=== PATIENT | female | born 1950 | race Caucasian/White ===

== ENCOUNTER 2016-06-17 06:05 | Emergency (ER) | payer OTHER, MEDICAID ==
[~2016-06-17] VITALS: Ht 167.6 cm; Wt 72.6 kg
[2016-06-17 07:51] LABS: Albumin 3.3 g/dL (3.4-5.0); BUN/Creatinine Ratio 13.6; Bilirubin, Total 0.7 mg/dL (0.2-1.0); Calcium 8.9 mg/dL (8.5-10.1); Potassium 3.3 mmol/L (3.5-5.1); Total Protein 7.1 g/dL (6.4-8.2)
[2016-06-17 07:59] LABS: Basophils # (auto) 0 uL; Basophils % (auto) 0.3 % (0.0-2.0); Eosinophils # (auto) 0.1 uL; Eosinophils % (auto) 1.2 % (0.0-7.0); Hematocrit 41.9 % (36.0-46.0); Hemoglobin 13.4 g/dL (12.2-16.2); Lymphocytes # (auto) 1.7 uL; Lymphocytes % (auto) 16.8 % (10.0-50.0); Mean Corpuscular Hemoglobin 29.5 pg (28.0-32.0); Mean Corpuscular Volume 92.3 fL (80.0-100.0); Mean Platelet Volume 10.2 fL (7.4-10.4); Monocytes # (auto) 1.1 uL; Monocytes % (auto) 10.8 % (0.0-12.0); Neutrophils # (auto) 7.3 uL; Neutrophils % (auto) 70.9 % (37.0-80.0); Platelet Count (auto) 238 10^3/uL (140-450); White Blood Cell 10.3 10^3/uL (4.4-10.8)
[2016-06-17 09:41] LABS: Urine Bilirubin Negative (Negative); Urine Blood Negative /uL (Negative); Urine Color Yellow (Yellow); Urine Glucose Normal (Normal); Urine Ketone Negative (Negative); Urine Nitrite Negative (Negative); Urine RBC <1 /hpf (0 - 4); Urine pH 6.5 (5.0-8.0)
[2016-06-17 12:30] VITALS: BP 139/82
== END 2016-06-17 13:26 | disposition home or self-care (01) ==
LOC: EDBD 06:05 → ER 06:05
DX: T42.6X1A Poisoning by other antiepileptic and sedative-hypnotic drugs, accidental (unintentional), initial encounter (principal); S00.03XA Contusion of scalp, initial encounter; I10 Essential (primary) hypertension; E87.6 Hypokalemia; I67.9 Cerebrovascular disease, unspecified; G81.91 Hemiplegia, unspecified affecting right dominant side; E05.90 Thyrotoxicosis, unspecified without thyrotoxic crisis or storm; Z85.3 Personal history of malignant neoplasm of breast; W18.39XA Other fall on same level, initial encounter; Y93.89 Activity, other specified; Y92.89 Other specified places as the place of occurrence of the external cause; Y99.8 Other external cause status
CPT/HCPCS: 36415; 70450; 80053; 81001; 83735; 84484; 85025; 85049; 93005

== ENCOUNTER 2016-12-05 07:39 | Inpatient (IN) | payer OTHER, MEDICAID ==
[~2016-12-05] VITALS: Ht 172.7 cm; Wt 75.0 kg
[2016-12-05] MEDS ORDERED: SODIUM CHLORIDE 0.9% 500 ML IV ONE (08:30)
[2016-12-05 08:33] LABS: Basophils # (auto) 0 uL; Basophils % (auto) 0.4 % (0.0-2.0); CONDITION Y; Eosinophils # (auto) 0.1 uL; Eosinophils % (auto) 1.3 % (0.0-7.0); Hematocrit 39.7 % (36.0-46.0); Hemoglobin 12.9 g/dL (12.2-16.2); Lymphocytes # (auto) 1.5 uL; Lymphocytes % (auto) 15.5 % (10.0-50.0); Mean Corpuscular Hemoglobin 30.1 pg (28.0-32.0); Mean Corpuscular Hgb Conc. 32.6 g/dL (32.0-36.0); Mean Corpuscular Volume 92.3 fL (80.0-100.0); Mean Platelet Volume 9.9 fL (7.4-10.4); Monocytes % (auto) 10.3 % (0.0-12.0); Neutrophils # (auto) 6.9 uL; Neutrophils % (auto) 72.5 % (37.0-80.0); Platelet Count (auto) 236 10^3/uL (140-450); Red Cell Distribution Width 15.1 % (11.6-16.0); White Blood Cell 9.5 10^3/uL (4.4-10.8)
[2016-12-05 09:03] LABS: BUN/Creatinine Ratio 19.2; Bilirubin, Total 0.5 mg/dL (0.2-1.0); Calcium 8.2 mg/dL (8.5-10.1); Potassium 3.8 mmol/L (3.5-5.1); Total Protein 6.5 g/dL (6.4-8.2)
[2016-12-05 09:43] LABS: Urine RBC None Seen /hpf (0 - 4)
[2016-12-05 09:48] LABS: Urine Bilirubin Negative (Negative); Urine Blood Negative /uL (Negative); Urine Color Yellow (Yellow); Urine Glucose Normal (Normal); Urine Ketone Negative (Negative); Urine Nitrite Negative (Negative); Urine Squamous Epithelial Cell FEW /hpf (<5)
[2016-12-05] MEDS ORDERED: ONDANSETRON HCL 4 MG/2 ML VIAL IV ONE (10:15)
[2016-12-05] MEDS ORDERED: HYDROmorphone HCL 2 MG/ML VL IV ONE (10:15)
[2016-12-05] MEDS ORDERED: cloNIDine HCL 0.1 MG TAB PO PRN (12:00)
[2016-12-05] MEDS ORDERED: MORPHINE SULF INJ 2 MG/ML SYRINGE 1ML IV PRN (12:15)
[2016-12-05] MEDS ORDERED: ACETAMINOPHEN 325 MG TAB PO PRN (12:15)
[2016-12-05] MEDS ORDERED: DOCUSATE SOD 100 MG CAP PO PRN (12:15)
[2016-12-05] MEDS ORDERED: NITROGLYCERIN 0.4 MG SL TAB SL PRN (12:15)
[2016-12-05] MEDS ORDERED: TEMAZEPAM 15 MG CAP PO PRN (12:15)
[2016-12-05] MEDS ORDERED: amLODIPine BESYLATE 5 MG TAB PO ONE (12:30)
[2016-12-05] MEDS: ASCORBIC ACID 500 MG TAB PO SCH ×2 (12:47→22:08)
[2016-12-05] MEDS: ZINC SULFATE 220 MG CAP PO SCH (12:48)
[2016-12-05] MEDS: MULTIPLE VITAMIN TAB PO SCH (12:48)
[2016-12-05] MEDS: FAMOTIDINE 20 MG TAB PO SCH ×2 (12:49→22:07)
[2016-12-05] MEDS: SODIUM CHLOR 0.9% PF (SALINE LOCK) 10ML VIAL IV SCH ×2 (12:50→22:03)
[2016-12-05] MEDS ORDERED: CITALOPRAM HYDROBR 20 MG TAB PO ONE (14:15)
[2016-12-05] MEDS: ONDANSETRON HCL 4 MG/2 ML VIAL IV PRN (14:30)
[2016-12-05] MEDS: MORPHINE SULF INJ 2 MG/ML SYRINGE 1ML IV PRN ×2 (14:30→19:44)
[2016-12-05 14:41] VITALS: BP 99/65
[2016-12-05] MEDS ORDERED: AMLO5TAB2 PO (15:01)
[2016-12-05] MEDS ORDERED: LISI-646 PO (15:01)
[2016-12-05] MEDS ORDERED: ESCI20TA51 PO (15:01)
[2016-12-05] MEDS ORDERED: SIMV-13 PO (15:01)
[2016-12-05] MEDS ORDERED: LOSA50TA6 PO (15:01)
[2016-12-05 15:33] LABS: Prothrombin Time 10.9 sec (9.37-12.3)
[2016-12-05] MEDS: BOOST PLUS 8 ounce PO SCH (16:34)
[2016-12-05 21:30] VITALS: BP 121/67
[2016-12-05] MEDS: ATORVASTATIN 20 MG TAB PO SCH (22:07)
[2016-12-05] MEDS: LISINOPRIL 20 MG TAB PO SCH (22:08)
[2016-12-06] MEDS: MORPHINE SULF INJ 2 MG/ML SYRINGE 1ML IV PRN ×2 (00:03→18:29)
[2016-12-06 05:00] VITALS: BP 91/63
[2016-12-06] MEDS: SODIUM CHLOR 0.9% PF (SALINE LOCK) 10ML VIAL IV SCH ×3 (06:06→21:51)
[2016-12-06 06:26] LABS: Basophils # (auto) 0 uL; Basophils % (auto) 0.3 % (0.0-2.0); CONDITION Y; Eosinophils # (auto) 0.2 uL; Eosinophils % (auto) 2.4 % (0.0-7.0); Hematocrit 36.5 % (36.0-46.0); Hemoglobin 12.1 g/dL (12.2-16.2); Lymphocytes # (auto) 1.4 uL; Lymphocytes % (auto) 15.8 % (10.0-50.0); Mean Corpuscular Hemoglobin 30.5 pg (28.0-32.0); Mean Corpuscular Hgb Conc. 33.1 g/dL (32.0-36.0); Mean Corpuscular Volume 92.1 fL (80.0-100.0); Mean Platelet Volume 9.7 fL (7.4-10.4); Monocytes % (auto) 11.7 % (0.0-12.0); Neutrophils # (auto) 6.2 uL; Neutrophils % (auto) 69.8 % (37.0-80.0); Platelet Count (auto) 208 10^3/uL (140-450); Red Cell Distribution Width 15.3 % (11.6-16.0); White Blood Cell 8.9 10^3/uL (4.4-10.8)
[2016-12-06 06:52] LABS: Albumin 2.5 g/dL (3.4-5.0); BUN/Creatinine Ratio 16.9; Bilirubin, Total 0.9 mg/dL (0.2-1.0); Calcium 8.1 mg/dL (8.5-10.1)
[2016-12-06] MEDS: BOOST PLUS 8 ounce PO SCH ×3 (08:00→18:29)
[2016-12-06 09:00] VITALS: BP 99/55
[2016-12-06] MEDS: ZINC SULFATE 220 MG CAP PO SCH (10:00)
[2016-12-06] MEDS ORDERED: PATIENTS OWN MEDICATION PO SCH ×2 (10:00)
[2016-12-06] MEDS: MULTIPLE VITAMIN TAB PO SCH (10:00)
[2016-12-06] MEDS: amLODIPine BESYLATE 5 MG TAB PO SCH (10:00)
[2016-12-06] MEDS: ASCORBIC ACID 500 MG TAB PO SCH ×2 (10:00→21:51)
[2016-12-06] MEDS: LOSARTAN POTASSIUM 50 MG TAB PO SCH (10:00)
[2016-12-06] MEDS: CITALOPRAM HYDROBR 20 MG TAB PO SCH (10:00)
[2016-12-06] MEDS: FAMOTIDINE 20 MG TAB PO SCH ×2 (10:00→21:51)
[2016-12-06] MEDS: LISINOPRIL 20 MG TAB PO SCH ×2 (10:00→21:55)
[2016-12-06] MEDS ORDERED: ceFAZolin 1GM/50ML D5W 50 ML IV ONE (10:42)
[2016-12-06] MEDS ORDERED: BUPIVACAINE 0.25% INJ 50ML VIAL ONE (10:52)
[2016-12-06] MEDS ORDERED: LIDOCAINE 1% HCL (LOCAL ANESTH.) INJ 20ML MDV ONE (10:52)
[2016-12-06] MEDS ORDERED: MIDAZOLAM HCL 1MG/1ML-2 ML VIAL ONE (11:18)
[2016-12-06] MEDS ORDERED: fentaNYL CITRATE 100 MCG/2 ML VL ONE (11:18)
[2016-12-06] MEDS ORDERED: ROCURONIUM 10MG/ML 10ML VIAL IV ONE (11:20)
[2016-12-06] MEDS ORDERED: ACETAMINOPHEN IV 100 ML IV ONE (11:53)
[2016-12-06 13:00] VITALS: BP 109/65
[2016-12-06] MEDS ORDERED: diphenhdrAMINE HCL 25 MG CAP PO PRN (13:15)
[2016-12-06 13:21] LABS: Base Excess -3.1 mmol/L (-2.0-2.0); Blood 02Sat 94.5 % (96-100); Blood COHb 0.3 % (0.5-1.5); Blood MetHb 0.3 % (0.0-1.5); HHb 5.5 % (0.0-5.0); MODE MASK - SIMPLE; O2Hb 93.9 % (94.0-97.0); PCO2 45.2 mmHg (35.0-45.0); PCO2(T) 45.2 mmHg (35.0-45.0); Room 0221T; Sample Type Arterial; pH 7.325 (7.350-7.450)
[2016-12-06] MEDS ORDERED: PROPOFOL 10 MG/ML 20 ML IV ONE (13:23)
[2016-12-06] MEDS ORDERED: ONDANSETRON HCL 4 MG/2 ML VIAL ONE (13:23)
[2016-12-06] MEDS ORDERED: NEOSTIGMINE 1 MG/ML INJ (10mg/10ML VIAL) ONE (13:23)
[2016-12-06] MEDS ORDERED: METOCLOPRAMIDE HCL 5MG/ml INJ 2ml VIAL ONE (13:23)
[2016-12-06] MEDS ORDERED: DEXAMETHASONE SOD PHOS 10MG/1ML VIAL INJ ONE (13:23)
[2016-12-06] MEDS ORDERED: GLYCOPYRROLATE 0.2 MG/ML 1ML VIAL ONE (13:23)
[2016-12-06 17:00] VITALS: BP 116/70
[2016-12-06] MEDS: ceFAZolin 1GM/50ML D5W 50 ML IV SCH (18:29)
[2016-12-06 20:20] VITALS: BP 97/70
[2016-12-06] MEDS: ATORVASTATIN 20 MG TAB PO SCH (21:51)
[2016-12-06] MEDS: HYDROcodone-ACET 5/325MG TAB PO PRN (21:54)
[2016-12-06 22:00] VITALS: BP 97/70
[2016-12-07] MEDS: ceFAZolin 1GM/50ML D5W 50 ML IV SCH ×3 (04:22→18:51)
[2016-12-07 04:48] VITALS: BP 118/69
[2016-12-07] MEDS: SODIUM CHLOR 0.9% PF (SALINE LOCK) 10ML VIAL IV SCH ×3 (06:01→22:24)
[2016-12-07] MEDS: BOOST PLUS 8 ounce PO SCH ×3 (08:30→18:51)
[2016-12-07 08:45] VITALS: BP 110/63
[2016-12-07 08:49] LABS: Hematocrit 36.5 % (36.0-46.0)
[2016-12-07 09:09] LABS: Albumin 2.4 g/dL (3.4-5.0); Calcium 7.7 mg/dL (8.5-10.1); Potassium 4.1 mmol/L (3.5-5.1)
[2016-12-07 09:16] LABS: Bilirubin, Total 0.5 mg/dL (0.2-1.0)
[2016-12-07] MEDS: LISINOPRIL 20 MG TAB PO SCH ×2 (10:00→22:00)
[2016-12-07] MEDS: LOSARTAN POTASSIUM 50 MG TAB PO SCH (10:00)
[2016-12-07] MEDS: ENOXAPARIN SOD 40 MG/0.4 ML SYRINGE SC SCH (10:54)
[2016-12-07] MEDS: CITALOPRAM HYDROBR 20 MG TAB PO SCH (10:55)
[2016-12-07] MEDS: amLODIPine BESYLATE 5 MG TAB PO SCH (10:55)
[2016-12-07] MEDS: FAMOTIDINE 20 MG TAB PO SCH ×2 (10:56→22:21)
[2016-12-07] MEDS: ZINC SULFATE 220 MG CAP PO SCH (10:56)
[2016-12-07] MEDS: ASCORBIC ACID 500 MG TAB PO SCH ×2 (10:56→22:21)
[2016-12-07] MEDS: MULTIPLE VITAMIN TAB PO SCH (10:57)
[2016-12-07] MEDS: MORPHINE SULF INJ 2 MG/ML SYRINGE 1ML IV PRN (11:06)
[2016-12-07 14:15] VITALS: BP 116/63
[2016-12-07 17:26] VITALS: BP 101/71
[2016-12-07 19:45] VITALS: BP 96/62
[2016-12-07] MEDS: HYDROcodone-ACET 5/325MG TAB PO PRN (20:27)
[2016-12-07 22:00] VITALS: BP 96/62
[2016-12-07] MEDS: ATORVASTATIN 20 MG TAB PO SCH (22:21)
[2016-12-08] MEDS: MORPHINE SULF INJ 2 MG/ML SYRINGE 1ML IV PRN ×4 (00:22→20:25)
[2016-12-08 05:00] VITALS: BP 113/66
[2016-12-08 06:16] LABS: Basophils # (auto) 0 uL; Basophils % (auto) 0.2 % (0.0-2.0); CONDITION Y; Eosinophils # (auto) 0.3 uL; Eosinophils % (auto) 2.5 % (0.0-7.0); Hematocrit 33.1 % (36.0-46.0); Hemoglobin 10.8 g/dL (12.2-16.2); Lymphocytes # (auto) 2.1 uL; Lymphocytes % (auto) 19.8 % (10.0-50.0); Mean Corpuscular Hemoglobin 30.6 pg (28.0-32.0); Mean Corpuscular Hgb Conc. 32.6 g/dL (32.0-36.0); Mean Corpuscular Volume 93.6 fL (80.0-100.0); Mean Platelet Volume 10.6 fL (7.4-10.4); Monocytes # (auto) 1.3 uL; Monocytes % (auto) 12.3 % (0.0-12.0); Neutrophils # (auto) 6.9 uL; Neutrophils % (auto) 65.2 % (37.0-80.0); Platelet Count (auto) 204 10^3/uL (140-450); Red Cell Distribution Width 15.4 % (11.6-16.0); White Blood Cell 10.6 10^3/uL (4.4-10.8)
[2016-12-08] MEDS: SODIUM CHLOR 0.9% PF (SALINE LOCK) 10ML VIAL IV SCH ×3 (06:42→22:11)
[2016-12-08] MEDS: BOOST PLUS 8 ounce PO SCH ×3 (08:00→18:00)
[2016-12-08 09:00] VITALS: BP 107/66
[2016-12-08] MEDS: ONDANSETRON HCL 4 MG/2 ML VIAL IV PRN ×2 (09:08→14:40)
[2016-12-08] MEDS: amLODIPine BESYLATE 5 MG TAB PO SCH (10:00)
[2016-12-08] MEDS: LOSARTAN POTASSIUM 50 MG TAB PO SCH (10:00)
[2016-12-08] MEDS: LISINOPRIL 20 MG TAB PO SCH ×2 (10:00→22:09)
[2016-12-08] MEDS: CITALOPRAM HYDROBR 20 MG TAB PO SCH (11:35)
[2016-12-08] MEDS: ENOXAPARIN SOD 40 MG/0.4 ML SYRINGE SC SCH (11:35)
[2016-12-08] MEDS: ASCORBIC ACID 500 MG TAB PO SCH ×2 (11:35→22:10)
[2016-12-08] MEDS: ZINC SULFATE 220 MG CAP PO SCH (11:35)
[2016-12-08] MEDS: MULTIPLE VITAMIN TAB PO SCH (11:35)
[2016-12-08] MEDS: FAMOTIDINE 20 MG TAB PO SCH ×2 (11:35→22:09)
[2016-12-08 13:00] VITALS: BP 125/70
[2016-12-08 17:00] VITALS: BP 125/77
[2016-12-08 20:30] VITALS: BP 106/64
[2016-12-08 21:53] VITALS: BP 106/64
[2016-12-08] MEDS: ATORVASTATIN 20 MG TAB PO SCH (22:08)
[2016-12-09] MEDS: MORPHINE SULF INJ 2 MG/ML SYRINGE 1ML IV PRN ×3 (00:38→13:38)
[2016-12-09 04:54] VITALS: BP 114/69
[2016-12-09 06:21] LABS: Basophils # (auto) 0 uL; Basophils % (auto) 0.2 % (0.0-2.0); CONDITION Y; Eosinophils # (auto) 0.2 uL; Eosinophils % (auto) 2.5 % (0.0-7.0); Hematocrit 33.5 % (36.0-46.0); Hemoglobin 10.8 g/dL (12.2-16.2); Lymphocytes # (auto) 1.6 uL; Lymphocytes % (auto) 18.3 % (10.0-50.0); Mean Corpuscular Hgb Conc. 32.3 g/dL (32.0-36.0); Mean Corpuscular Volume 93.1 fL (80.0-100.0); Mean Platelet Volume 10.4 fL (7.4-10.4); Monocytes # (auto) 1.2 uL; Monocytes % (auto) 13.9 % (0.0-12.0); Neutrophils # (auto) 5.7 uL; Neutrophils % (auto) 65.1 % (37.0-80.0); Platelet Count (auto) 210 10^3/uL (140-450); Red Cell Distribution Width 15.5 % (11.6-16.0); White Blood Cell 8.8 10^3/uL (4.4-10.8)
[2016-12-09] MEDS: SODIUM CHLOR 0.9% PF (SALINE LOCK) 10ML VIAL IV SCH ×2 (06:43→13:39)
[2016-12-09 07:01] LABS: BUN/Creatinine Ratio 26.2; Calcium 7.3 mg/dL (8.5-10.1); Potassium 4.1 mmol/L (3.5-5.1)
[2016-12-09] MEDS: BOOST PLUS 8 ounce PO SCH ×2 (08:00→12:00)
[2016-12-09] MEDS: ONDANSETRON HCL 4 MG/2 ML VIAL IV PRN ×2 (08:27→13:38)
[2016-12-09 08:53] VITALS: BP 107/67
[2016-12-09] MEDS: LISINOPRIL 20 MG TAB PO SCH (10:00)
[2016-12-09] MEDS: LOSARTAN POTASSIUM 50 MG TAB PO SCH ×2 (10:00→11:03)
[2016-12-09] MEDS: ASCORBIC ACID 500 MG TAB PO SCH (11:01)
[2016-12-09] MEDS: MULTIPLE VITAMIN TAB PO SCH (11:01)
[2016-12-09] MEDS: ZINC SULFATE 220 MG CAP PO SCH (11:01)
[2016-12-09] MEDS: CITALOPRAM HYDROBR 20 MG TAB PO SCH (11:02)
[2016-12-09] MEDS: FAMOTIDINE 20 MG TAB PO SCH (11:03)
[2016-12-09] MEDS: amLODIPine BESYLATE 5 MG TAB PO SCH (11:03)
[2016-12-09] MEDS: ENOXAPARIN SOD 40 MG/0.4 ML SYRINGE SC SCH (11:04)
[2016-12-09] MEDS ORDERED: CLO01T PO (13:06)
[2016-12-09] MEDS ORDERED: ENO40SY SC (13:06)
[2016-12-09] MEDS ORDERED: FAM20T PO (13:06)
[2016-12-09] MEDS ORDERED: ZIN220C PO (13:06)
[2016-12-09] MEDS ORDERED: ONDA4INJ IV (13:06)
[2016-12-09] MEDS ORDERED: CITA-77 PO (13:06)
[2016-12-09] MEDS ORDERED: ATOR20TA50 PO (13:06)
[2016-12-09] MEDS ORDERED: LISI-646 PO (13:06)
[2016-12-09] MEDS ORDERED: MULTTAB99 PO (13:06)
[2016-12-09] MEDS ORDERED: ACE325T PO (13:06)
[2016-12-09] MEDS ORDERED: LOSA50TA6 PO (13:06)
[2016-12-09] MEDS ORDERED: ASCO500T11 PO (13:06)
[2016-12-09] MEDS ORDERED: AML5T PO (13:06)
[2016-12-09] MEDS ORDERED: DOCU100C8 PO (13:06)
[2016-12-09 13:34] VITALS: BP 123/70
[2016-12-09 16:12] VITALS: BP 123/70
[2016-12-09 16:24] VITALS: BP 111/61
== END 2016-12-09 17:20 | DRG 480 ==
LOC: EDUNIT# 07:39 → ER 07:41 → TELE 07:42 → TELE-CENTR 13:53 → TELE-E-ADS 14:10 → TELE-CENTR 16:48
PROVIDERS: ADMIT Internal Medicine; ATTEND Nurse Practitioner Acute Care
PROC: 0QS634Z Reposition Right Upper Femur with Internal Fixation Device, Percutaneous Approach (ICD-10-PCS; principal; 2016-12-05)
DX: S72.001A Fracture of unspecified part of neck of right femur, initial encounter for closed fracture (principal); G93.40 Encephalopathy, unspecified; E44.0 Moderate protein-calorie malnutrition; I69.359 Hemiplegia and hemiparesis following cerebral infarction affecting unspecified side; J98.11 Atelectasis; I12.9 Hypertensive chronic kidney disease with stage 1 through stage 4 chronic kidney disease, or unspecified chronic kidney disease; N18.2 Chronic kidney disease, stage 2 (mild); R09.02 Hypoxemia; C50.912 Malignant neoplasm of unspecified site of left female breast; W01.0XXA Fall on same level from slipping, tripping and stumbling without subsequent striking against object, initial encounter; I70.0 Atherosclerosis of aorta; M85.80 Other specified disorders of bone density and structure, unspecified site; Z68.25 Body mass index [BMI] 25.0-25.9, adult; Z79.899 Other long term (current) drug therapy; Z82.49 Family history of ischemic heart disease and other diseases of the circulatory system; Z83.3 Family history of diabetes mellitus; Z80.9 Family history of malignant neoplasm, unspecified; Y93.89 Activity, other specified; Y92.009 Unspecified place in unspecified non-institutional (private) residence as the place of occurrence of the external cause; Y99.8 Other external cause status; Z90.12 Acquired absence of left breast and nipple
CPT/HCPCS: 36415; 36600; 51702; 70450; 71010; 72125; 73090; 73502; 73562; 76000; 80048; 80053; 81001; 82805; 84484; 85014; 85018; 85025; 85379; 85610; 93005; 93306; 93971; 96361; 96374; 96375; 97110; 97530; J0131; J0690; J1100; J2001; J2250; J2405; J2704; J3490

== ENCOUNTER 2017-07-01 23:11 | Inpatient (IN) | payer OTHER, MEDICAID ==
[~2017-07-01] VITALS: Ht 172.7 cm; Wt 71.7 kg
[~2017-07-01 23:11] MED LIST: ACE325T PO; AML5T PO; AMLO5TAB2 PO; ASCO500T11 PO; ATOR20TA50 PO; CITA-77 PO; CLO01T PO; DOCU100C8 PO; ENO40SY SC; ESCI20TA51 PO; FAM20T PO; LISI-646 PO; LOSA50TA6 PO; MULTTAB99 PO; ONDA4INJ IV; SIMV-13 PO; ZIN220C PO
[2017-07-02 00:27] LABS: Basophils # (auto) 0.1 uL; Basophils % (auto) 1.1 % (0.0-2.0); Eosinophils # (auto) 0.2 uL; Eosinophils % (auto) 1.8 % (0.0-7.0); Hematocrit 41.8 % (36.0-46.0); Hemoglobin 13.9 g/dL (12.2-16.2); Lymphocytes # (auto) 1.6 uL; Lymphocytes % (auto) 14.6 % (10.0-50.0); Mean Corpuscular Hemoglobin 30.4 pg (28.0-32.0); Mean Corpuscular Hgb Conc. 33.1 g/dL (32.0-36.0); Mean Corpuscular Volume 91.9 fL (80.0-100.0); Monocytes # (auto) 1.1 uL; Monocytes % (auto) 10.2 % (0.0-12.0); Neutrophils # (auto) 7.7 uL; Neutrophils % (auto) 72.3 % (37.0-80.0); Nucleated Red Blood Cells % 0.1 %; Platelet Count (auto) 256 10^3/uL (140-450); Red Blood Cells 4.55 10^6/uL (4.0-5.20); Red Cell Distribution Width 14.7 % (11.8-14.3); White Blood Cell 10.7 10^3/uL (4.4-10.8)
[2017-07-02 00:57] LABS: Albumin 3.1 g/dL (3.4-5.0); Calcium 8.9 mg/dL (8.5-10.1); Potassium 3.7 mmol/L (3.5-5.1)
[2017-07-02 01:00] LABS: BUN/Creatinine Ratio 22.4
[2017-07-02 01:01] LABS: Bilirubin, Total 0.4 mg/dL (0.2-1.0); Total Protein 7.3 g/dL (6.4-8.2)
[2017-07-02] MEDS ORDERED: ONDANSETRON HCL 4 MG/2 ML VIAL IV ONE ×2 (01:15→04:15)
[2017-07-02] MEDS ORDERED: MORPHINE SULFATE 4 MG/ML SYR/VIAL IV ONE (01:15)
[2017-07-02] MEDS ORDERED: HYDROmorphone HCL 2 MG/ML VL IV ONE (04:15)
[2017-07-02 04:30] LABS: Amylase 49 U/L (25-115); Lipase 134 U/L (73-393)
[2017-07-02] MEDS ORDERED: ONDANSETRON HCL 4 MG/2 ML VIAL IV PRN (07:30)
[2017-07-02] MEDS ORDERED: HYDROmorphone HCL 2 MG/ML VL IV PRN (07:30)
[2017-07-02] MEDS ORDERED: DOCUSATE SOD 100 MG CAP PO PRN (07:30)
[2017-07-02] MEDS ORDERED: ACETAMINOPHEN 325 MG TAB PO PRN (07:30)
[2017-07-02] MEDS ORDERED: IBUP600T27 PO (09:40)
[2017-07-02] MEDS: HYDROcodone-ACET 5/325MG TAB PO PRN ×3 (12:35→21:35)
[2017-07-02 13:01] VITALS: BP 116/64
[2017-07-02] MEDS: LISINOPRIL 20 MG TAB PO SCH ×2 (13:18→21:36)
[2017-07-02] MEDS: FAMOTIDINE 20 MG TAB PO SCH ×2 (13:18→21:35)
[2017-07-02] MEDS: amLODIPine BESYLATE 5 MG TAB PO SCH (13:19)
[2017-07-02] MEDS: LOSARTAN POTASSIUM 50 MG TAB PO SCH (13:19)
[2017-07-02] MEDS: CITALOPRAM HYDROBR 20 MG TAB PO SCH (13:19)
[2017-07-02] MEDS: SODIUM CHLORIDE 0.9% 1,000 ML IV SCH ×2 (13:20→21:34)
[2017-07-02] MEDS: ENOXAPARIN SOD 40 MG/0.4 ML SYRINGE SC SCH (13:20)
[2017-07-02 17:08] VITALS: BP 93/51
[2017-07-02] MEDS: ATORVASTATIN 20 MG TAB PO SCH ×2 (21:35→21:36)
[2017-07-02 22:00] VITALS: BP 120/57
[2017-07-03] MEDS: HYDROcodone-ACET 5/325MG TAB PO PRN ×3 (01:30→12:48)
[2017-07-03 05:00] VITALS: BP 124/59
[2017-07-03 05:32] LABS: Basophils # (auto) 0.1 uL; Basophils % (auto) 0.8 % (0.0-2.0); Eosinophils # (auto) 0.2 uL; Eosinophils % (auto) 2.8 % (0.0-7.0); Hematocrit 38.4 % (36.0-46.0); Hemoglobin 12.3 g/dL (12.2-16.2); Lymphocytes # (auto) 2.2 uL; Lymphocytes % (auto) 24.5 % (10.0-50.0); Mean Corpuscular Hemoglobin 29.9 pg (28.0-32.0); Mean Corpuscular Hgb Conc. 31.9 g/dL (32.0-36.0); Mean Corpuscular Volume 93.7 fL (80.0-100.0); Monocytes # (auto) 0.9 uL; Monocytes % (auto) 10.8 % (0.0-12.0); Neutrophils # (auto) 5.4 uL; Neutrophils % (auto) 61.1 % (37.0-80.0); Nucleated Red Blood Cells % 0.1 %; Platelet Count (auto) 219 10^3/uL (140-450); Red Cell Distribution Width 14.9 % (11.8-14.3); White Blood Cell 8.8 10^3/uL (4.4-10.8)
[2017-07-03 06:02] LABS: Albumin 2.5 g/dL (3.4-5.0); BUN/Creatinine Ratio 24.2; Calcium 8.1 mg/dL (8.5-10.1); Potassium 4.2 mmol/L (3.5-5.1)
[2017-07-03 06:04] LABS: Bilirubin, Total 0.3 mg/dL (0.2-1.0); Total Protein 5.9 g/dL (6.4-8.2)
[2017-07-03 07:30] VITALS: BP 109/55
[2017-07-03 08:32] VITALS: BP 109/55
[2017-07-03] MEDS: amLODIPine BESYLATE 5 MG TAB PO SCH (10:00)
[2017-07-03] MEDS: LISINOPRIL 20 MG TAB PO SCH (10:00)
[2017-07-03] MEDS: LOSARTAN POTASSIUM 50 MG TAB PO SCH (10:00)
[2017-07-03] MEDS: SODIUM CHLORIDE 0.9% 1,000 ML IV SCH (10:05)
[2017-07-03] MEDS: CITALOPRAM HYDROBR 20 MG TAB PO SCH (11:02)
[2017-07-03] MEDS: FAMOTIDINE 20 MG TAB PO SCH ×2 (11:03→21:51)
[2017-07-03] MEDS: ENOXAPARIN SOD 40 MG/0.4 ML SYRINGE SC SCH (11:03)
[2017-07-03 11:59] VITALS: BP 128/62
[2017-07-03 16:40] LABS: Urine Bacteria FEW /hpf (None Seen); Urine Blood 1+ /uL (Negative); Urine Mucus FEW (None Seen); Urine Specific Gravity 1.031 (1.001-1.035); Urine WBC 249 /hpf (0 - 5); Urine WBC Clumps PRESENT /hpf (None Seen)
[2017-07-03] MEDS: HYDROmorphone HCL 2 MG TAB PO PRN ×3 (16:53→23:30)
[2017-07-03 17:26] VITALS: BP 109/68
[2017-07-03] MEDS: ATORVASTATIN 20 MG TAB PO SCH (21:51)
[2017-07-03 22:00] VITALS: BP 104/61
[2017-07-04 05:32] VITALS: BP 121/72
[2017-07-04] MEDS: SODIUM CHLORIDE 0.9% 1,000 ML IV SCH ×2 (05:37→14:42)
[2017-07-04] MEDS: HYDROmorphone HCL 2 MG TAB PO PRN ×2 (05:38→07:55)
[2017-07-04] MEDS: MORPHINE SULFATE 4 MG/ML SYR/VIAL IV PRN ×6 (08:15→22:02)
[2017-07-04 09:00] VITALS: BP 122/77
[2017-07-04] MEDS: FAMOTIDINE 20 MG TAB PO SCH ×2 (09:53→21:44)
[2017-07-04] MEDS: CITALOPRAM HYDROBR 20 MG TAB PO SCH (09:53)
[2017-07-04] MEDS: amLODIPine BESYLATE 5 MG TAB PO SCH (09:53)
[2017-07-04] MEDS: cefTRIAXone 1GM/10ml IVPUSH 10 ML IV SCH (09:57)
[2017-07-04] MEDS: LOSARTAN POTASSIUM 50 MG TAB PO SCH (10:00)
[2017-07-04] MEDS ORDERED: ENOXAPARIN SOD 40 MG/0.4 ML SYRINGE SC SCH (10:00)
[2017-07-04] MEDS: CARISOPRODOL 350 MG TAB PO PRN ×2 (10:30→18:21)
[2017-07-04] MEDS: HYDROcodone-ACET 10/325MG TAB PO PRN ×3 (10:30→18:21)
[2017-07-04 13:00] VITALS: BP 105/75
[2017-07-04 16:37] VITALS: BP 97/61
[2017-07-04] MEDS: ATORVASTATIN 20 MG TAB PO SCH (21:44)
[2017-07-04 22:00] VITALS: BP 97/63
[2017-07-05] MEDS: SODIUM CHLORIDE 0.9% 1,000 ML IV SCH ×2 (00:28→15:25)
[2017-07-05] MEDS: MORPHINE SULFATE 4 MG/ML SYR/VIAL IV PRN (00:59)
[2017-07-05] MEDS: HYDROcodone-ACET 10/325MG TAB PO PRN (00:59)
[2017-07-05 05:32] VITALS: BP 138/86
[2017-07-05 09:00] VITALS: BP 142/93
[2017-07-05] MEDS: cefTRIAXone 1GM/10ml IVPUSH 10 ML IV SCH (09:18)
[2017-07-05] MEDS: FAMOTIDINE 20 MG TAB PO SCH ×2 (09:19→21:36)
[2017-07-05] MEDS: amLODIPine BESYLATE 5 MG TAB PO SCH (09:19)
[2017-07-05] MEDS: CITALOPRAM HYDROBR 20 MG TAB PO SCH (09:19)
[2017-07-05] MEDS: LOSARTAN POTASSIUM 50 MG TAB PO SCH (09:20)
[2017-07-05] MEDS: HYDROmorphone HCL 2 MG TAB PO PRN ×4 (09:20→23:58)
[2017-07-05] MEDS ORDERED: LEVOFLOXACIN 500 MG TAB PO ONE (12:00)
[2017-07-05 12:47] VITALS: BP 133/80
[2017-07-05 16:50] VITALS: BP 123/71
[2017-07-05 21:30] VITALS: BP 145/91
[2017-07-05] MEDS: TEMAZEPAM 15 MG CAP PO PRN (21:33)
[2017-07-05] MEDS: ATORVASTATIN 20 MG TAB PO SCH (21:34)
[2017-07-06] MEDS: HYDROmorphone HCL 2 MG TAB PO PRN (04:13)
[2017-07-06] MEDS: SODIUM CHLORIDE 0.9% 1,000 ML IV SCH (04:32)
[2017-07-06 05:00] VITALS: BP 133/76
[2017-07-06 09:13] VITALS: BP 138/83
[2017-07-06] MEDS: FAMOTIDINE 20 MG TAB PO SCH ×2 (10:02→22:00)
[2017-07-06] MEDS: LACTULOSE 20Gm/30ML SOLN PO SCH (10:02)
[2017-07-06] MEDS: CITALOPRAM HYDROBR 20 MG TAB PO SCH (10:03)
[2017-07-06] MEDS: LEVOFLOXACIN 500 MG TAB PO SCH (10:04)
[2017-07-06] MEDS: amLODIPine BESYLATE 5 MG TAB PO SCH (10:04)
[2017-07-06] MEDS: LOSARTAN POTASSIUM 50 MG TAB PO SCH (10:04)
[2017-07-06] MEDS: HYDROcodone-ACET 10/325MG TAB PO PRN ×3 (10:35→22:43)
[2017-07-06 12:33] VITALS: BP 120/75
[2017-07-06 17:05] VITALS: BP 131/80
[2017-07-06 22:05] VITALS: BP 146/96
[2017-07-06] MEDS: ATORVASTATIN 20 MG TAB PO SCH (22:43)
[2017-07-06] MEDS: TEMAZEPAM 15 MG CAP PO PRN (22:43)
[2017-07-07 05:00] VITALS: BP 147/84
[2017-07-07 08:00] VITALS: BP 150/94
[2017-07-07] MEDS: FAMOTIDINE 20 MG TAB PO SCH ×2 (10:00→21:09)
[2017-07-07] MEDS: LACTULOSE 20Gm/30ML SOLN PO SCH ×2 (10:00→21:05)
[2017-07-07] MEDS: CITALOPRAM HYDROBR 20 MG TAB PO SCH (10:00)
[2017-07-07] MEDS: LEVOFLOXACIN 500 MG TAB PO SCH (10:01)
[2017-07-07] MEDS: HYDROcodone-ACET 10/325MG TAB PO PRN ×4 (10:01→22:45)
[2017-07-07] MEDS: LOSARTAN POTASSIUM 50 MG TAB PO SCH (10:01)
[2017-07-07] MEDS: amLODIPine BESYLATE 5 MG TAB PO SCH (10:01)
[2017-07-07 11:40] VITALS: BP 142/91
[2017-07-07 17:02] VITALS: BP 124/74
[2017-07-07] MEDS: TEMAZEPAM 15 MG CAP PO PRN (21:05)
[2017-07-07] MEDS: ATORVASTATIN 20 MG TAB PO SCH (21:07)
[2017-07-07 21:41] VITALS: BP 125/84
[2017-07-08] MEDS: HYDROcodone-ACET 10/325MG TAB PO PRN ×3 (03:09→11:54)
[2017-07-08 05:15] VITALS: BP_SYST 105; BP_SYST 123; BP_DIAS 61; BP_DIAS 65
[2017-07-08 09:00] VITALS: BP 103/58
[2017-07-08] MEDS: CITALOPRAM HYDROBR 20 MG TAB PO SCH (09:35)
[2017-07-08] MEDS: LEVOFLOXACIN 500 MG TAB PO SCH (09:35)
[2017-07-08] MEDS: LOSARTAN POTASSIUM 50 MG TAB PO SCH (09:35)
[2017-07-08] MEDS: amLODIPine BESYLATE 5 MG TAB PO SCH (09:36)
[2017-07-08] MEDS: FAMOTIDINE 20 MG TAB PO SCH (09:36)
[2017-07-08] MEDS: LACTULOSE 20Gm/30ML SOLN PO SCH (09:37)
== END 2017-07-08 11:58 | DRG 543 ==
LOC: EDBD 23:11 → ER 23:26 → OVERFLOW 23:27 → WEST WING 07-02 08:11
PROVIDERS: ADMIT Nurse Practitioner; ATTEND Internal Medicine
DX: M84.651A Pathological fracture in other disease, right femur, initial encounter for fracture (principal); I69.351 Hemiplegia and hemiparesis following cerebral infarction affecting right dominant side; N39.0 Urinary tract infection, site not specified; B96.20 Unspecified Escherichia coli [E. coli] as the cause of diseases classified elsewhere; M85.80 Other specified disorders of bone density and structure, unspecified site; I10 Essential (primary) hypertension; F32.9 Major depressive disorder, single episode, unspecified; B95.2 Enterococcus as the cause of diseases classified elsewhere; M84.68XA Pathological fracture in other disease, other site, initial encounter for fracture; M25.511 Pain in right shoulder; K59.00 Constipation, unspecified; Z91.81 History of falling; Z79.899 Other long term (current) drug therapy
CPT/HCPCS: 36415; 51702; 70450; 72125; 72131; 73060; 73090; 73590; 74176; 80053; 81001; 82150; 83690; 85025; 87086; 87088; 87186; 93005; 96374; 96375; 96376; 97116; 97163; 97530; J2405